=== PATIENT | male | born 1960 | race Caucasian/White ===

== ENCOUNTER 2023-06-06 21:29 | Emergency (ER) | payer MEDICAID ==
[2023-06-06] MEDS: Rivaroxaban 10 MG Tab ONE ×2 (22:37)
[2023-06-06] MEDS: Rivaroxaban 10 MG Tab PO ONE (22:38)
== END 2023-06-06 23:05 | disposition home or self-care (01) ==
LOC: LB.ED 21:29
DX: S69.91XA Unspecified injury of right wrist, hand and finger(s), initial encounter (principal); F17.210 Nicotine dependence, cigarettes, uncomplicated; Z91.030 Bee allergy status; W01.0XXA Fall on same level from slipping, tripping and stumbling without subsequent striking against object, initial encounter
CPT/HCPCS: 29125; 73110-RT; 99283; A9270-GY